=== PATIENT | female | born 1985 | race Two or more races ===

== ENCOUNTER → 2024-03-29 | Emergency (ER) | payer OTHER ==
[~2024-03-29] VITALS: Ht 167.6 cm; Wt 61.2 kg
[~2024-03-29] MED LIST: FAMOTIDINE/PF 20 MG/2 ML VIAL ONE; FAMOtidine 10 MG/ML (4ML VIAL) IV PUSH STA; ONDANSETRON HCL 2 MG/ML VIAL IV STA; ONDANSETRON HCL 2 MG/ML VIAL ONE; SUMATRIPTAN SUCCINATE 6 MG/0.5 ML VIAL SUBCUTANEO ONE; SUMATRIPTAN SUCCINATE 6 MG/0.5 ML VIAL SUBCUTANEO STA; SYNTHROID150 MCG PO; XANAX XR0.5 MG PO
== END | disposition home or self-care (01) ==
LOC: ER 19:53
DX: G43.909 Migraine, unspecified, not intractable, without status migrainosus (principal)